=== PATIENT | female | born 1975 | race African-American/Black ===

== ENCOUNTER 2017-05-12 13:16 | Emergency (ER) | payer OTHER ==
[~2017-05-12] VITALS: Ht 157.5 cm; Wt 47.2 kg
[2017-05-12 13:59] LABS: Basophils # (auto) 0 uL; Eosinophils # (auto) 0 uL; Eosinophils % (auto) 0.4 % (0.0-7.0); Hematocrit 39.5 % (36.0-46.0); Hemoglobin 13.2 g/dL (12.2-16.2); Lymphocytes # (auto) 1.6 uL; Lymphocytes % (auto) 34.1 % (10.0-50.0); Mean Corpuscular Hemoglobin 30.3 pg (28.0-32.0); Mean Corpuscular Hgb Conc. 33.5 g/dL (32.0-36.0); Mean Corpuscular Volume 90.2 fL (80.0-100.0); Monocytes # (auto) 0.5 uL; Monocytes % (auto) 10.9 % (0.0-12.0); Neutrophils # (auto) 2.6 uL; Neutrophils % (auto) 53.6 % (37.0-80.0); Platelet Count (auto) 220 10^3/uL (140-450); Red Blood Cells 4.37 10^6/uL (4.0-5.20); Red Cell Distribution Width 12.7 % (11.8-14.3); White Blood Cell 4.8 10^3/uL (4.4-10.8)
[2017-05-12 14:15] LABS: Albumin 4.1 g/dL (3.4-5.0); BUN/Creatinine Ratio 10.5; Bilirubin, Total 0.5 mg/dL (0.2-1.0); Calcium 9.2 mg/dL (8.5-10.1); Potassium 3.7 mmol/L (3.5-5.1); Total Protein 8.2 g/dL (6.4-8.2)
[2017-05-12 14:27] LABS: Urine Amorphous Crystal FEW /hpf (None Seen); Urine Bacteria NONE SEEN /hpf (None Seen); Urine Blood Negative /uL (Negative); Urine Mucus FEW (None Seen); Urine Specific Gravity 1.019 (1.001-1.035); Urine WBC 11 /hpf (0 - 5)
[2017-05-12 15:14] VITALS: BP 142/86
[2017-05-12] MEDS: SODIUM CHLORIDE 0.9% 1,000 ML IV ONE (15:15)
== END 2017-05-12 16:33 | disposition home or self-care (01) ==
LOC: ER 13:16
DX: O21.9 Vomiting of pregnancy, unspecified (principal); O16.1 Unspecified maternal hypertension, first trimester; Z3A.08 8 weeks gestation of pregnancy
CPT/HCPCS: 36415; 80053; 81001; 84702; 85025; 96360; 99284; J7030

== ENCOUNTER 2019-02-14 23:54 | Emergency (ER) | payer OTHER ==
[~2019-02-14] VITALS: Ht 157.5 cm; Wt 50.8 kg
[2019-02-15 02:55] VITALS: BP 138/98
[2019-02-15] MEDS ORDERED: DexAMETHasone SOD PHOS 10MG/1ML VIAL INJ IM ONE (03:15)
[2019-02-15] MEDS ORDERED: ACETAMINOPHEN/CODEINE#3 (300/30mg) TAB PO ONE (03:15)
== END 2019-02-15 03:50 | disposition home or self-care (01) ==
LOC: ER 23:54
DX: O26.891 Other specified pregnancy related conditions, first trimester (principal); O16.1 Unspecified maternal hypertension, first trimester; J06.9 Acute upper respiratory infection, unspecified; Z3A.01 Less than 8 weeks gestation of pregnancy
CPT/HCPCS: 96372; 99283; J1100

== ENCOUNTER 2020-01-26 10:55 | Inpatient (IN) | payer OTHER ==
[~2020-01-26] VITALS: Ht 157.5 cm; Wt 56.7 kg
[2020-01-26 11:30] LABS: Basophils # (auto) 0 10 ^3/uL (0-0.2); Basophils % (auto) 0.2 % (0.0-2.0); Eosinophils # (auto) 0 10 ^3/uL (0-0.8); Eosinophils % (auto) 0.3 % (0.0-7.0); Hematocrit 41.9 % (36.0-46.0); Lymphocytes # (auto) 1.2 10 ^3/uL (0.4-5.4); Lymphocytes % (auto) 32.8 % (10.0-50.0); Mean Corpuscular Hemoglobin 30.2 pg (28.0-32.0); Mean Corpuscular Hgb Conc. 33.4 g/dL (32.0-36.0); Mean Corpuscular Volume 90.3 fL (80.0-100.0); Monocytes # (auto) 0.3 10 ^3/uL (0-1.3); Monocytes % (auto) 7.3 % (0.0-12.0); Neutrophils # (auto) 2.3 10 ^3/uL (1.6-8.6); Neutrophils % (auto) 59.4 % (37.0-80.0); Nucleated Red Blood Cells % 0.1 %; Platelet Count (auto) 285 10^3/uL (140-450); Red Blood Cells 4.64 10^6/uL (4.0-5.20); Red Cell Distribution Width 14.5 % (11.8-14.3); White Blood Cell 3.8 10^3/uL (4.4-10.8)
[2020-01-26 11:50] LABS: Albumin 4.4 g/dL (3.4-5.0); BUN/Creatinine Ratio 6.6; Calcium 9.1 mg/dL (8.5-10.1); Potassium 3.4 mmol/L (3.5-5.1)
[2020-01-26 11:57] LABS: Bilirubin, Total 0.5 mg/dL (0.2-1.0); Total Protein 8.6 g/dL (6.4-8.2)
[2020-01-26] MEDS ORDERED: ASPirin 81 mg TAB PO ONE (12:45)
[2020-01-26] MEDS ORDERED: cloNIDine HCL 0.1 MG TAB PO ONE ×2 (12:45→16:30)
[2020-01-26] MEDS ORDERED: NITROGLYCERIN 0.4 MG SL TAB SL PRN (14:30)
[2020-01-26] MEDS ORDERED: LISINOPRIL 10 MG TAB PO SCH (14:30)
[2020-01-26] MEDS ORDERED: MORPHINE SULF INJ 2 MG/ML SYRINGE 1ML IV PRN ×2 (14:30)
[2020-01-26] MEDS ORDERED: hydrALAZINE HCL 20 MG/ML VL IV PRN (14:30)
[2020-01-26] MEDS ORDERED: ACETAMINOPHEN 500 MG TAB PO PRN (14:30)
[2020-01-26] MEDS ORDERED: POTASSIUM CHL 20 Meq TABLET PO ONE (14:30)
[2020-01-26] MEDS ORDERED: ONDANSETRON HCL 4 MG/2 ML VIAL IV PRN (14:30)
[2020-01-26] MEDS ORDERED: HYDROcodone-ACET 5/325MG TAB PO PRN (14:30)
[2020-01-26] MEDS ORDERED: cloNIDine HCL 0.1 MG TAB ONE (16:17)
[2020-01-26] MEDS ORDERED: cloNIDine HCL 0.1 MG TAB PO PRN (18:30)
[2020-01-26] MEDS ORDERED: METOPROLOL TARTRATE 25 MG TAB PO SCH (22:00)
[2020-01-26] MEDS ORDERED: DOCUSATE SOD 100 MG CAP PO SCH (22:00)
[2020-01-26 22:45] LABS: Beta HCG, Quantitative < 1 mlU/mL (1-3)
--- NOTE | 2020-01-27 01:15 | NUR ---
Telemetry admit from [facility] admitted to Telemetry. Patient oriented to Karly Chrsitianson, primary RN, unit, room, bed, and unit policies regarding patient care and visiting hours. Patient now on continuous telemetry monitoring, tele box and telemetry reading on arrival to unit is SR 80. Patient placed on bedside oxygen, weighed by bed scale and encouraged to call if they need something. All questions and concerns addressed, patient verbalized understanding.
[2020-01-27 06:21] LABS: Basophils # (auto) 0 10 ^3/uL (0-0.2); Basophils % (auto) 0.7 % (0.0-2.0); Eosinophils # (auto) 0.1 10 ^3/uL (0-0.8); Eosinophils % (auto) 1.8 % (0.0-7.0); Hematocrit 37.9 % (36.0-46.0); Hemoglobin 12.2 g/dL (12.2-16.2); Lymphocytes # (auto) 1.7 10 ^3/uL (0.4-5.4); Lymphocytes % (auto) 51.9 % (10.0-50.0); Mean Corpuscular Hemoglobin 29.5 pg (28.0-32.0); Mean Corpuscular Hgb Conc. 32.3 g/dL (32.0-36.0); Mean Corpuscular Volume 91.5 fL (80.0-100.0); Monocytes # (auto) 0.4 10 ^3/uL (0-1.3); Monocytes % (auto) 11.4 % (0.0-12.0); Neutrophils # (auto) 1.1 10 ^3/uL (1.6-8.6); Neutrophils % (auto) 34.2 % (37.0-80.0); Nucleated Red Blood Cells % 0.1 %; Platelet Count (auto) 237 10^3/uL (140-450); Red Blood Cells 4.14 10^6/uL (4.0-5.20); Red Cell Distribution Width 14.5 % (11.8-14.3); White Blood Cell 3.2 10^3/uL (4.4-10.8)
[2020-01-27 06:38] LABS: INR 1.08 (0.9-1.15)
[2020-01-27 06:43] LABS: Calcium 8.9 mg/dL (8.5-10.1); Potassium 3.5 mmol/L (3.5-5.1)
[2020-01-27 06:46] LABS: BUN/Creatinine Ratio 13.3
[2020-01-27 06:47] LABS: Cholesterol 198 mg/dL (< 200); HDL Cholesterol 85 mg/dL (40-59); LDL Cholesterol 93 mg/dL (< 100); Triglycerides 45 mg/dL (< 150)
[2020-01-27] MEDS ORDERED: FAMOTIDINE 20 MG TAB PO SCH (10:00)
[2020-01-27] MEDS ORDERED: ASPirin-EC 81 mg tab PO SCH (10:00)
[2020-01-27] MEDS ORDERED: cloNIDine HCL 0.1 MG TAB ONE (10:23)
[2020-01-27] MEDS ORDERED: cloNIDine HCL 0.1 MG TAB PO ONE (10:30)
[2020-01-27] MEDS ORDERED: ADENOSINE 53 MG in GIVE UN-DILUTED 0 ML IV STA (11:29)
[2020-01-27] MEDS ORDERED: LABE100T4 PO (13:13)
[2020-01-27 16:32] VITALS: BP 156/100
--- NOTE | 2020-01-27 18:13 | NUR ---
Rechecked blood pressure B/P. 91/64, HR. 58
[2020-01-27 18:51] VITALS: BP 91/64
--- NOTE | 2020-01-27 19:40 | NUR ---
Discharge instructions given as ordered. Encourage to follow up with PMD as instructed. All questions and concerns addressed. Patient verbalized understanding. Medication reconciliation form completed and copy given to patient. Home medications held in Pharmacy returned to patient. IV removed with catheter intact and pressure dressing applied. Telemetry unit returned to ICU. Patient awaiting transportation.
--- NOTE | 2020-01-27 19:45 | NUR ---
assumed care, pt. awake, pt. d/c home tonight, pt. waiting for a ride, no sob.
--- NOTE | 2020-01-27 20:20 | NUR ---
pt. d/c home in stable condition, iv and pvc monitor removed and sent to icu by [email or web address].
== END 2020-01-27 20:20 | disposition home or self-care (01) | DRG 282 ==
LOC: EDBD 10:55 → ER 10:55 → TELE 14:22 → TELE-WESTW 01-27 12:45
PROVIDERS: ADMIT Nurse Practitioner Acute Care; ATTEND Family Medicine
DX: I16.0 Hypertensive urgency (principal); I21.A1 Myocardial infarction type 2; E87.6 Hypokalemia; F12.90 Cannabis use, unspecified, uncomplicated; H53.8 Other visual disturbances; I25.10 Atherosclerotic heart disease of native coronary artery without angina pectoris; Z82.49 Family history of ischemic heart disease and other diseases of the circulatory system; Z83.3 Family history of diabetes mellitus; Z87.59 Personal history of other complications of pregnancy, childbirth and the puerperium; Z91.14 Patient's other noncompliance with medication regimen
CPT/HCPCS: 36415; 71046; 78452; 80048; 80053; 80061; 84443; 84484; 84702; 85025; 85610; 85730; 86141; 93005; 93017; 93306; G0378; J0153

== ENCOUNTER 2020-05-17 00:18 | Emergency (ER) | payer OTHER ==
[~2020-05-17] VITALS: Ht 157.5 cm; Wt 56.7 kg
[~2020-05-17 00:18] MED LIST: LABE100T4 PO
[2020-05-17 02:02] LABS: BUN/Creatinine Ratio 17.1; Calcium 8.9 mg/dL (8.5-10.1); Potassium 3.9 mmol/L (3.5-5.1)
[2020-05-17] MEDS ORDERED: IOPAMIDOL 76 % (ISOVUE-370) 100ML BTL IV ONE (02:02)
[2020-05-17 03:13] VITALS: BP 174/99
[2020-05-17] MEDS ORDERED: IODIXANOL 320MG/ML 100ML BTL IV ONE (04:04)
== END 2020-05-17 05:30 | disposition left against medical advice (07) ==
LOC: ER 00:19
DX: T18.9XXA Foreign body of alimentary tract, part unspecified, initial encounter (principal); I10 Essential (primary) hypertension; R13.10 Dysphagia, unspecified; W45.8XXA Other foreign body or object entering through skin, initial encounter; Y93.89 Activity, other specified; Y92.89 Other specified places as the place of occurrence of the external cause; Y99.8 Other external cause status
CPT/HCPCS: 36415; 70450; 70490; 70491; 71250; 71260; 80048; 99285; Q9967

== ENCOUNTER 2020-11-11 21:43 | Emergency (ER) | payer OTHER ==
[~2020-11-11] VITALS: Ht 157.5 cm; Wt 45.4 kg
[2020-11-12] MEDS ORDERED: ACETAMINOPHEN 500 MG TAB PO ONE (00:15)
[2020-11-12] MEDS ORDERED: cloNIDine HCL 0.1 MG TAB PO ONE (00:15)
[2020-11-12] MEDS ORDERED: HYDROcodone-ACET 10/325MG TAB PO ONE (00:15)
[2020-11-12 00:37] LABS: Hematocrit 37.7 % (36.0-46.0); Hemoglobin 12.5 g/dL (12.2-16.2); Mean Corpuscular Hemoglobin 29.8 pg (28.0-32.0); Mean Corpuscular Hgb Conc. 33.3 g/dL (32.0-36.0); Mean Corpuscular Volume 89.7 fL (80.0-100.0); Red Cell Distribution Width 13.9 % (11.8-14.3); White Blood Cell 3.4 10^3/uL (4.4-10.8)
[2020-11-12 00:38] LABS: Basophils % (manual) 0 (0.0-2.0); Blast Cells 0; Eosinophils % (manual) 0 (0-7); Metamyelocytes % 0; Myelocytes % 0; Promyelocytes % 0; Reactive Lymphocytes 0
[2020-11-12 00:45] LABS: Alanine Aminotransferase 24 U/L (13-56); Albumin 3.8 g/dL (3.4-5.0); Anion Gap 7 (5-15); Aspartate Aminotransferase 23 U/L (15-37); BUN/Creatinine Ratio 6.6; Blood Urea Nitrogen 5 mg/dL (7-18); Carbon Dioxide 24 mmol/L (21-32); Chloride 107 mmol/L (98-107); GFR African American 107 mL/min; GFR Non-African American 88 mL/min; Glucose 88 mg/dL (74-106); Potassium 3.8 mmol/L (3.5-5.1); Sodium 138 mmol/L (136-145)
[2020-11-12 00:50] LABS: Alkaline Phosphatase 65 U/L (45-117); Bilirubin, Total 0.3 mg/dL (0.2-1.0); Total Protein 7.6 g/dL (6.4-8.2)
[2020-11-12 01:32] LABS: Band Neutrophils % (manual) 5; Lymphocytes % (manual) 25 (10.0-50.0); Monocytes % (manual) 23 (0-12)
[2020-11-12 01:38] LABS: Urine Bacteria FEW /hpf (None Seen); Urine Blood Negative /uL (Negative); Urine Specific Gravity 1.006 (1.001-1.035); Urine WBC <1 /hpf (0 - 5)
[2020-11-12 02:53] VITALS: BP 184/110
== END 2020-11-12 04:10 | disposition home or self-care (01) ==
LOC: ER 21:44
DX: U07.1 COVID-19 (principal); I10 Essential (primary) hypertension
CPT/HCPCS: 36415; 71045; 80053; 81001; 84484; 85007; 85027; 87426; 87804; 93005

== ENCOUNTER 2021-11-05 10:21 | Emergency (ER) | payer OTHER ==
[~2021-11-05] VITALS: Ht 157.5 cm; Wt 45.2 kg
[2021-11-05] MEDS ORDERED: cloNIDine HCL 0.1 MG TAB PO ONE (11:00)
[2021-11-05 11:33] LABS: Basophils # (auto) 0 10 ^3/uL (0-0.2); Basophils % (auto) 0.7 % (0.0-2.0); Eosinophils # (auto) 0 10 ^3/uL (0-0.8); Eosinophils % (auto) 0.8 % (0.0-7.0); Hemoglobin 14.6 g/dL (12.2-16.2); Lymphocytes # (auto) 1.2 10 ^3/uL (0.4-5.4); Lymphocytes % (auto) 37.9 % (10.0-50.0); Mean Corpuscular Hemoglobin 29.1 pg (28.0-32.0); Mean Corpuscular Hgb Conc. 32.4 g/dL (32.0-36.0); Monocytes # (auto) 0.2 10 ^3/uL (0-1.3); Monocytes % (auto) 7.7 % (0.0-12.0); Neutrophils # (auto) 1.7 10 ^3/uL (1.6-8.6); Neutrophils % (auto) 52.9 % (37.0-80.0); Nucleated Red Blood Cells % 0.2 %; Red Cell Distribution Width 14.1 % (11.8-14.3); White Blood Cell 3.2 10^3/uL (4.4-10.8)
[2021-11-05 11:33] LABS: Urine Bacteria NONE SEEN /hpf (None Seen); Urine Blood Negative /uL (Negative); Urine Mucus FEW (None Seen); Urine Specific Gravity 1.015 (1.001-1.035); Urine WBC 13 /hpf (0 - 5)
[2021-11-05 12:02] LABS: Albumin 4.7 g/dL (3.4-5.0); Calcium 9.8 mg/dL (8.5-10.1); Potassium 4.2 mmol/L (3.5-5.1)
[2021-11-05 12:04] LABS: BUN/Creatinine Ratio 13.2
[2021-11-05 12:07] LABS: Bilirubin, Total 0.7 mg/dL (0.2-1.0); Total Protein 8.7 g/dL (6.4-8.2)
[2021-11-05] MEDS ORDERED: LABE100T4 PO (14:11)
[2021-11-05 14:22] VITALS: BP 104/60
== END 2021-11-05 14:24 | disposition home or self-care (01) ==
LOC: ER 10:21
DX: R53.1 Weakness (principal); I10 Essential (primary) hypertension; F12.10 Cannabis abuse, uncomplicated; E78.5 Hyperlipidemia, unspecified
CPT/HCPCS: 36415; 80053; 81001; 85025

== ENCOUNTER 2023-01-23 23:18 | Emergency (ER) | payer MEDICAID, OTHER ==
[~2023-01-23] VITALS: Ht 157.5 cm; Wt 52.8 kg
[~2023-01-23 23:18] MED LIST changes: +AZIT1POW PO; +METH4PAK PO; +PRED20TA2 PO; +TRAM50TA2 PO
[2023-01-23 23:36] VITALS: O2SAT 100
[2023-01-24] MEDS ORDERED: cloNIDine HCL 0.1 MG TAB PO ONE
[2023-01-24 01:32] VITALS: BP 110/81
[2023-01-24 06:51] VITALS: PULSE 64; RESP 17
[2023-01-24] MEDS ORDERED: METH-1181 PO (07:13)
[2023-01-24] MEDS ORDERED: IBUP-1454 PO (07:13)
== END 2023-01-24 07:07 | disposition home or self-care (01) ==
LOC: ER 23:18
DX: S16.1XXA Strain of muscle, fascia and tendon at neck level, initial encounter (principal); S39.012A Strain of muscle, fascia and tendon of lower back, initial encounter; I10 Essential (primary) hypertension; E78.5 Hyperlipidemia, unspecified; Z87.891 Personal history of nicotine dependence; Z79.2 Long term (current) use of antibiotics; Z79.899 Other long term (current) drug therapy; V42.5XXA Car driver injured in collision with two- or three-wheeled motor vehicle in traffic accident, initial encounter; Y93.89 Activity, other specified; Y92.410 Unspecified street and highway as the place of occurrence of the external cause; Y99.8 Other external cause status
CPT/HCPCS: 72040; 72100; 93005

== ENCOUNTER 2023-08-27 16:15 | Emergency (ER) | payer MEDICAID, OTHER ==
[~2023-08-27] VITALS: Ht 157.5 cm; Wt 56.5 kg
[~2023-08-27 16:15] MED LIST changes: +IBUP-1454 PO; -LABE100T4 PO; +LABE100T7 PO; +METH-1181 PO
[2023-08-27 16:30] VITALS: BP 195/104; PULSE 74; RESP 16; O2SAT 100
[2023-08-27 20:25] LABS: Basophils # (auto) 0 10 ^3/uL (0-0.2); Eosinophils # (auto) 0 10 ^3/uL (0-0.8); Eosinophils % (auto) 0.7 % (0.0-7.0); Hematocrit 34.6 % (36.0-46.0); Hemoglobin 11.3 g/dL (12.2-16.2); Lymphocytes # (auto) 1.7 10 ^3/uL (0.4-5.4); Lymphocytes % (auto) 39.7 % (10.0-50.0); Mean Corpuscular Hemoglobin 27.8 pg (28.0-32.0); Mean Corpuscular Hgb Conc. 32.7 g/dL (32.0-36.0); Mean Corpuscular Volume 85.1 fL (80.0-100.0); Monocytes # (auto) 0.5 10 ^3/uL (0-1.3); Monocytes % (auto) 11.8 % (0.0-12.0); Neutrophils % (auto) 46.8 % (37.0-80.0); Nucleated Red Blood Cells % 0.1 %; Red Blood Cells 4.06 10^6/uL (4.0-5.20); Red Cell Distribution Width 15.4 % (11.8-14.3); White Blood Cell 4.3 10^3/uL (4.4-10.8)
[2023-08-27 20:36] LABS: Chloride 106 mmol/L (98-107); Sodium 139 mmol/L (136-145)
[2023-08-27 20:37] LABS: Anion Gap 7 (5-15); Calcium 10.3 mg/dL (8.7-10.4); Carbon Dioxide 26 mmol/L (20-30)
[2023-08-27 20:42] LABS: BUN/Creatinine Ratio 12.2 (10.0-20.0); Blood Urea Nitrogen 11 mg/dL (9-23); Glucose 100 mg/dL (74-106)
[2023-08-27 21:35] LABS: Urine Bacteria None Seen /hpf (None Seen)
[2023-08-27 21:42] LABS: Urine Blood 3+ /uL (Negative); Urine Clarity Turbid (Clear); Urine Color Light-Orange (Yellow); Urine Mucus FEW (None Seen); Urine Protein, UAD TRACE (Negative); Urine Urobilinogen Normal (Negative); Urine WBC 22 /hpf (0 - 5)
== END 2023-08-27 23:45 | disposition home or self-care (01) ==
LOC: ER 16:15
DX: N94.6 Dysmenorrhea, unspecified (principal); R10.2 Pelvic and perineal pain; I10 Essential (primary) hypertension; E78.5 Hyperlipidemia, unspecified; F17.210 Nicotine dependence, cigarettes, uncomplicated; F12.10 Cannabis abuse, uncomplicated; Z79.899 Other long term (current) drug therapy
CPT/HCPCS: 36415; 76856; 80048; 81001; 81025; 84702; 85025

== ENCOUNTER 2023-10-21 17:37 | Inpatient (IN) | payer MEDICAID, OTHER ==
[~2023-10-21] VITALS: Ht 157.5 cm; Wt 55.0 kg
[2023-10-21] MEDS: cloNIDine HCL 0.1 MG TAB ONE (18:05)
[2023-10-21] MEDS: cloNIDine HCL 0.1 MG TAB PO ONE (18:36)
[2023-10-21 18:58] LABS: Basophils # (auto) 0 10 ^3/uL (0-0.2); Eosinophils # (auto) 0 10 ^3/uL (0-0.8); Eosinophils % (auto) 0.9 % (0.0-7.0); Hematocrit 38.7 % (36.0-46.0); Hemoglobin 12.6 g/dL (12.2-16.2); Lymphocytes # (auto) 1.9 10 ^3/uL (0.4-5.4); Mean Corpuscular Hemoglobin 28.1 pg (28.0-32.0); Mean Corpuscular Hgb Conc. 32.7 g/dL (32.0-36.0); Mean Corpuscular Volume 85.9 fL (80.0-100.0); Monocytes # (auto) 0.4 10 ^3/uL (0-1.3); Monocytes % (auto) 10.6 % (0.0-12.0); Neutrophils # (auto) 1.8 10 ^3/uL (1.6-8.6); Neutrophils % (auto) 43.5 % (37.0-80.0); Nucleated Red Blood Cells % 0.1 %; Platelet Count (auto) 322 10^3/uL (140-450); White Blood Cell 4.2 10^3/uL (4.4-10.8)
[2023-10-21 19:05] LABS: Urine Bacteria FEW /hpf (None Seen); Urine Blood Negative /uL (Negative); Urine Budding Yeast OCCASIONAL /hpf (None Seen); Urine Clarity Clear (Clear); Urine Color Light-Yellow (Yellow); Urine Mucus FEW (None Seen); Urine Protein, UAD TRACE (Negative); Urine Specific Gravity 1.018 (1.001-1.035); Urine Urobilinogen Normal (Negative); Urine WBC 7 /hpf (0 - 5); Urine pH 6.5 (5.0-9.0)
[2023-10-21 19:16] LABS: Alanine Aminotransferase 17 U/L (7-40); Albumin 4.9 g/dL (3.2-4.8); Alkaline Phosphatase 69 U/L (46-116); Anion Gap 7 (5-15); Aspartate Aminotransferase 22 U/L (13-40); BUN/Creatinine Ratio 11.4 (10.0-20.0); Blood Urea Nitrogen 10 mg/dL (9-23); Calcium 10.1 mg/dL (8.7-10.4); Carbon Dioxide 25 mmol/L (20-30); Chloride 105 mmol/L (98-107); Glucose 86 mg/dL (74-106); Potassium 3.5 mmol/L (3.5-5.1); Sodium 137 mmol/L (136-145)
[2023-10-21 19:17] LABS: Bilirubin, Total 0.5 mg/dL (0.2-1.0); Total Protein 8.5 g/dL (5.7-8.2)
[2023-10-21 23:23] VITALS: PULSE 53; RESP 17; O2SAT 99
[2023-10-21] MEDS: cefTRIAXone 1GM/50ML D5W 50 ML IV ONE (23:50)
[2023-10-22] VITALS (7 sets, daily range): BP systolic 100–148; BP diastolic 72–86; PULSE 56–83; RESP 14–18; TEMP 97.3–98.3; O2SAT 97–100
[2023-10-22] MEDS: ACETAMINOPHEN 325 MG TAB PO PRN ×2 (04:49)
[2023-10-22] MEDS: TEMAZEPAM 15 MG CAP PO PRN (04:51)
[2023-10-22 09:27] LABS: Chloride 106 mmol/L (98-107); Potassium 3.2 mmol/L (3.5-5.1); Sodium 136 mmol/L (136-145)
[2023-10-22 09:28] LABS: Anion Gap 3 (5-15); Calcium 9.6 mg/dL (8.7-10.4); Carbon Dioxide 27 mmol/L (20-30)
[2023-10-22 09:33] LABS: Blood Urea Nitrogen 8 mg/dL (9-23); Glucose 76 mg/dL (74-106); Triglycerides 48 mg/dL (< 150)
[2023-10-22 09:34] LABS: LDL Cholesterol 136 mg/dL (< 100)
[2023-10-22 09:35] LABS: Cholesterol 219 mg/dL (< 200); HDL Cholesterol 67 mg/dL (40-59)
[2023-10-22] MEDS: LABETALOL HCL 200 MG TAB PO SCH (10:33)
[2023-10-22] MEDS: ASPirin 81 mg TAB PO SCH (10:35)
[2023-10-22] MEDS: ONDANSETRON HCL 4 MG/2 ML VIAL IV PRN (13:41)
[2023-10-22] MEDS: hydrALAZINE HCL 20 MG/ML VL IV PRN (13:51)
[2023-10-22] MEDS ORDERED: METOCLOPRAMIDE HCL 5MG/ml INJ 2ml VIAL IV PRN (14:45)
[2023-10-22] MEDS: METOCLOPRAMIDE HCL 5MG/ml INJ 2ml VIAL IV ONE (15:15)
[2023-10-22] MEDS: MORPHINE SULFATE INJ 2 MG/ml SYRG IV PRN (15:16)
[2023-10-22] MEDS: POTASSIUM CHL 20MEQ/100ML 100 ML IV ONE (18:02)
[2023-10-22 22:30] LABS: Alanine Aminotransferase 16 U/L (7-40); Albumin 4.4 g/dL (3.2-4.8); Alkaline Phosphatase 60 U/L (46-116); Anion Gap 7 (5-15); Aspartate Aminotransferase 20 U/L (13-40); BUN/Creatinine Ratio 11.4 (10.0-20.0); Bilirubin, Total 0.6 mg/dL (0.2-1.0); Blood Urea Nitrogen 10 mg/dL (9-23); Calcium 10.2 mg/dL (8.7-10.4); Carbon Dioxide 24 mmol/L (20-30); Chloride 106 mmol/L (98-107); Glucose 84 mg/dL (74-106); Potassium 3.6 mmol/L (3.5-5.1); Sodium 137 mmol/L (136-145); Total Protein 7.8 g/dL (5.7-8.2)
[2023-10-23] VITALS (7 sets, daily range): BP systolic 98–127; BP diastolic 68–88; PULSE 64–75; RESP 16–18; TEMP 36.7; O2SAT 96–100
[2023-10-23] MEDS ORDERED: cefTRIAXone 1GM/50ML D5W 50 ML IV SCH (21:00)
== END 2023-10-23 19:06 | disposition home or self-care (01) | DRG 54 ==
LOC: ER 17:37 → TELE 22:45 → TELE-CENTR 10-22 03:24
PROVIDERS: ADMIT Internal Medicine Geriatric Medicine; ATTEND Internal Medicine Geriatric Medicine
DX: G43.909 Migraine, unspecified, not intractable, without status migrainosus (principal); E78.5 Hyperlipidemia, unspecified; N30.00 Acute cystitis without hematuria; I16.1 Hypertensive emergency; I10 Essential (primary) hypertension; E87.6 Hypokalemia; Z87.891 Personal history of nicotine dependence; Z87.59 Personal history of other complications of pregnancy, childbirth and the puerperium; Z87.11 Personal history of peptic ulcer disease
CPT/HCPCS: 36415; 70450; 70551; 71275; 80048; 80053; 80061; 81001; 83036; 83735; 84443; 84484; 85025; 93005; 93306; 96365; 99291; G0378; J2405; J3480

== ENCOUNTER 2024-09-25 16:38 | Emergency (ER) | payer MEDICAID ==
[~2024-09-25] VITALS: Ht 157.5 cm; Wt 47.5 kg
[~2024-09-25 16:38] MED LIST changes: -AZIT1POW PO; -IBUP-1454 PO; -METH-1181 PO; -METH4PAK PO
--- NOTE | 2024-09-25 17:13 | ED.PDOC ---
HPI Comments This is a 49 year old female presenting to the ED with chief complaint of HTN/headache. Patient reports that she has been experiencing a headache today after having a case of soda fall onto her right shoulder/head at the store. Patient denies any LOC. Patient relays that her BP has also been elevated at 221/110. Patient denies any SOB, chest pain, dizziness, N/V, or syncope. Chief Complaint: High Blood Pressure Time Seen by MD: 17:11 Primary Care Provider: unknown Reviewed Notes: Nurses Notes, Medications, Allergies Allergies: Coded Allergies: NO KNOWN ALLERGIES (Unverified , 01/26/20) Home Meds Active Scripts Tramadol Hcl (Tramadol Hcl) 50 Mg Tab, 50 MG PO BID, #20 TAB Prov:JUAN CARLOS SAGE 09/28/22 Prednisone (Prednisone) 20 Mg Tab, 40 MG PO DAILY, #20 MG Prov:JUAN CARLOS SAGE 09/28/22 Labetalol Hcl (Labetalol Hcl) 100 Mg Tab, 1 TAB PO BID, #60 TAB 5 Refills Prov:RABIA LINDO DO 11/05/21 Reported Medications Labetalol Hcl (Labetalol Hcl) 100 Mg Tab, 100 MG PO BID, TAB 01/27/20 Information Source: Patient Mode of Arrival: Ambulatory Severity: Moderate Timing: Hours Duration: Since onset Prehospital treatment: None Cardiac Risk Factors: Hyperlipidemia, HTN Past Medical History PAST MEDICAL HISTORY: High Lipids, HTN, PUD Surgical History: Denies all surgeries [employer] History: Ectopic Family History Family History: Reviewed,noncontributory to illness, Family hx of DM, Family hx of HTN Social History Smoker: Quit Less Than 1 Year, Other Alcohol: Occasionally Drugs: Marijuana Lives In: Home Constitutional: denies: chills, diaphoresis, fatigue, fever, malaise, sweats, weakness, others EENTM: denies: blurred vision, double vision, ear bleeding, ear discharge, ear drainage, ear pain, ear ringing, eye pain, eye redness, hearing loss, mouth pain, mouth swelling, nasal discharge, nose bleeding, nose congestion, nose pain, photophobia, tearing, throat pain, throat swelling, voice changes, others Respiratory: denies: cough, hemoptysis, orthopnea, SOB at rest, shortness of breath, SOB with excertion, stridor, wheezing, others Cardiovascular: denies: chest pain, dizzy spells, diaphoresis, Dyspnea on exertion, edema, irregular heart beat, left arm pain, lightheadedness, palpitations, PND, syncope, others Gastrointestinal: denies: abdomen distended, abdominal pain, blood streaked bowels, constipated, diarrhea, dysphagia, difficulty swallowing, hematemesis, melena, nausea, poor appetite, poor fluid intake, rectal bleeding, rectal pain, vomiting, others Genitourinary: denies: abnormal vagina bleeding, burning, dyspareunia, dysuria, flank pain, frequency, hematuria, incontinence, pain, , vagina discharge, urgency, others Neurological: reports: headache; denies: dizziness, fainting, left sided numbness, left sided weakness, numbness, paresthesia, pre-existing deficit, right sided numbness, right sided weakness, seizure, speech problems, tingling, tremors, weakness, others Musculoskeletal: reports: back pain, others (Right wrist pain, low back pain); denies: gout, joint pain, joint swelling, muscle pain, muscle stiffness, neck pain Integumetry: denies: bruises, change in color, change in hair/nails, dryness, laceration, lesions, lumps, rash, wounds, others Allergic/Immunocompromised: denies: Difficulty Healing, Frequent Infections, Hives, Itching, others Hematologic/Lymphatic: denies: anemia, blood clots, easy bleeding, easy bruising, swollen glands, others Endocrine: denies: excessive hunger, excessive sweating, excessive thirst, excessive urination, flushing, intolerance to cold, intolerance to heat, unexplained weight gain, unexplained weight loss, others Psychiatric: denies: anxiety, bipolar disorder, depression, hopeless, panic disorder, schizophrenia, sleepless, suicidal, others All Other Systems: Reviewed and Negative Physical Exam General Appearance: Moderate Distress (Due to wrist and back pain concerns. Patient was tearful at time of evaluation.), Normal HEENT: Normal ENT Inspection, Pharynx Normal, TMs Normal Neck: Full Range of Motion, Non-Tender, Normal, Normal Inspection Respiratory: Chest Non-Tender, Lungs Clear, No Accessory Muscle Use, No Respiratory Distress, Normal Breath Sounds Cardiovascular: No Edema, No JVD, No Murmur, No Gallop, Normal Peripheral Pulses, Regular Rate/Rhythm Breast Exam: Deferred Gastrointestinal: No Organomegaly, Non Tender, No Pulsatile Mass, Normal Bowel Sounds, Soft Genitalia: Deferred Pelvic: Deferred Rectal: Deferred Extremities: Other (Right wrist is diffusely tender to palpation throughout the dorsal aspect. No definitive edema. [id number] reduced range of motion. Distal neurovascularly intact. No crepitus.) Musculoskeletal : Location: Bilateral Extremity Location: Back (Diffuse bilateral lower lumbar tenderness to palpation bilaterally. Mild hypertonicity appreciated. No step-offs noted. Patient denies any saddle paresthesia. Bilateral distal neurovascularly intact.) Apperance: Normal Neurologic: Alert, director river restoration II-XII nml as Tested, No Motor Deficits, Normal Affect, Normal Mood, No Sensory Deficits Cerebellar Function: NOT DONE Reflexes: NOT DONE Skin: Dry, Normal Color, Warm Lymphatic: No Adenopathy Was a procedure done? Was a procedure done?: No CP Differential Dx Differential Diagnosis: Other (Wrist fracture, wrist sprain, lumbar vertebrae fracture, lumbar strain, hypertensive urgency) X-Ray, Labs, Meds, VS Vital Signs Date Time Temp Pulse Resp B/P (MAP) Pulse Ox O2 Delivery O2 Flow Rate FiO2 09/25/24 17:27 162/108 09/25/24 16:50 98.0 58 18 221/140 (167) 98 98.0 Current Medications Medications (Trade) Dose Ordered Sig/Meeta Route Start Time Stop Time Status Last Admin Clonidine HCl (Catapres Tablet) 0.2 mg ONCE ONCE PO 09/25/24 17:00 09/25/24 17:01 DC 09/25/24 17:27 Ketorolac Tromethamine (Toradol Injection) 30 mg ONCE ONCE IM 09/25/24 17:00 09/25/24 17:01 DC 09/25/24 17:26 X-Ray, Labs, Meds, VS Comment All studies performed the ED were evaluated by me personally. Imaging studies were unremarkable for any fractures of the wrist or compression fractures of the lumbar vertebrae. Patient's blood pressure has been jerked for any acceptable zone at time of discharge. Advised patient follow up with the primary care provider for discussions related to what appears to be poorly controlled hypertension. Time of 1ST Reevaluation: 18:33 Reevaluation 1ST: Improved Consultation: PCP Patient Education/Counseling: Diagnosis, Treatment Family Education/Counseling: Diagnosis, Treatment, No Family Present SEPSIS Sepsis Screen Date sepsis recognized/suspect: Sep 25, 2024 Time Sepsis recognized/suspect: 1649 Recent Procedure: No On Antibiotic Therapy: No Respiratory Rate >20: No Heart Rate >90: No Temp<36 C (96.8 F) or >38.3 C: No SBP <90 or MAP <65 mmHG: No New Acute Mental Status Change: No Is the patient on CPAP, BIPAP,: No Physician Orders R Wrist 3+ View Xray (09/25/24 16:52) Lumbar Spine 3 View (09/25/24 16:52) Vital Signs Date Time Temp Pulse Resp B/P (MAP) Pulse Ox O2 Delivery O2 Flow Rate FiO2 09/25/24 17:27 162/108 09/25/24 16:50 98.0 58 18 221/140 (167) 98 98.0 Medications Medications Dose Ordered Sig/Meeta Route Start Time Stop Time Status Last Admin Dose Admin Clonidine HCl 0.2 mg ONCE ONCE PO 09/25/24 17:00 09/25/24 17:01 DC 09/25/24 17:27 Ketorolac Tromethamine 30 mg ONCE ONCE IM 09/25/24 17:00 09/25/24 17:01 DC 09/25/24 17:26 Departure 1 Departure Time of Disposition: 18:33 Impression: Primary Impression: Wrist sprain Additional Impressions: Low back strain Hypertensive urgency Disposition: HOME / SELF CARE / HOMELESS Condition: Stable Additional Instructions: Advised patient utilize pain medication as needed for symptomatic relief as well as ice therapy. Blood pressure medication as needed. Patient needs to follow up with the primary care provider for discussions related to improved blood pr essure management as she is currently a poorly controlled hypertensive. e-Prescriptions Clonidine Hydrochloride (Clonidine Hcl) 0.2 Mg Tab 1 TAB PO BIDP PRN, #15 TAB 0 Refills Prov: JOSE GRUBER PAC 09/25/24 Hydrocodone-Acetaminophen (Hydrocodone Bitartrate/AC 5-325 mg) 1 Tab Tab 1 TAB PO Q6HP PRN, #12 TAB Prov: JOSE GRUBER PAC 09/25/24 Ibuprofen (Ibuprofen) 600 Mg Tab 1 TAB PO Q6HP PRN, #20 TAB Prov: JOSE GRUBER PAC 09/25/24 Discharged With: Self, Friend Critical Care Note Critical Care Time?: No Stability Stability form required: No Heart Score Heart Score: Heart Score Response (Comments) Value History N/A 0 EKG N/A 0 Age N/A 0 Risk Factors N/A 0 Troponin N/A 0 Total 0 I personally scribed for JOSE GRUBER PAC ([email or web address]) on 09/25/24 at 17:13. Electronically submitted by Jason Leonardo ([email or web address]). JOSE GRUBER PAC Sep 25, 2024 17:13
[2024-09-25] MEDS: KETOROLAC TROMETH 60MG/2ML VIAL IM ONE (17:26)
--- NOTE | 2024-09-25 17:36 | DVH ---
CLINICAL INDICATION: Trauma/crush injury TECHNIQUE: 2 radiographic views of the lumbar spine were obtained. Comparison: XY LUMBAR SPINE 3 VIEW on DOS: 01/24/23, XY LUMBAR SPINE 3 VIEW on DOS: 09/28/22 FINDINGS/IMPRESSION: There are no compressed vertebral. Alignment appears normal There is no significant change from 01/24/2023
--- NOTE | 2024-09-25 17:38 | DVH ---
CLINICAL INDICATION: Trauma/crush injury TECHNIQUE: 3 radiographic views of the right wrist were obtained. Comparison: None FINDINGS/IMPRESSION: Bony structures are in normal alignment. Appear intact There are no dislocations. There are no radiopaque foreign bodies There are no abnormal soft tissue calcifications.
[2024-09-25] MEDS ORDERED: CLON0.2T PO (18:35)
[2024-09-25] MEDS ORDERED: IBUP-1454 PO (18:35)
[2024-09-25] MEDS ORDERED: HYDR-4902 PO (18:35)
[2024-09-25 18:39] VITALS: BP 162/108; PULSE 59; RESP 18; TEMP 97.8; O2SAT 97
== END 2024-09-25 20:14 | disposition home or self-care (01) ==
LOC: ER 16:38
DX: S39.012A Strain of muscle, fascia and tendon of lower back, initial encounter (principal); S63.501A Unspecified sprain of right wrist, initial encounter; I16.0 Hypertensive urgency; F10.90 Alcohol use, unspecified, uncomplicated; F12.90 Cannabis use, unspecified, uncomplicated; E78.5 Hyperlipidemia, unspecified; I10 Essential (primary) hypertension; Z87.59 Personal history of other complications of pregnancy, childbirth and the puerperium; Z87.11 Personal history of peptic ulcer disease; Z79.899 Other long term (current) drug therapy; Z87.891 Personal history of nicotine dependence; Z79.52 Long term (current) use of systemic steroids; W23.0XXA Caught, crushed, jammed, or pinched between moving objects, initial encounter; Y93.89 Activity, other specified; Y92.89 Other specified places as the place of occurrence of the external cause; Y99.8 Other external cause status; Y90.9 Presence of alcohol in blood, level not specified
CPT/HCPCS: 72100; 73110; 96372; 99284; J1885